=== PATIENT | male | born 1970 | race Caucasian/White ===

== ENCOUNTER 2016-10-11 15:37 | Emergency (ER) | payer BC, OTHER ==
[~2016-10-11] VITALS: Ht 188 cm; Wt 99.8 kg
[2016-10-11] MEDS ORDERED: IBUPROFEN 400 MG TABLET ONE (16:00)
[2016-10-11] MEDS ORDERED: IBUPROFEN 400 MG TABLET PO ONE (16:00)
[2016-10-11 17:38] VITALS: BP 142/76
== END 2016-10-11 17:39 | disposition home or self-care (01) ==
LOC: ER 15:41
DX: S16.1XXA Strain of muscle, fascia and tendon at neck level, initial encounter (principal); S40.011A Contusion of right shoulder, initial encounter; S60.211A Contusion of right wrist, initial encounter; E78.00 Pure hypercholesterolemia, unspecified; C67.9 Malignant neoplasm of bladder, unspecified; Z98.890 Other specified postprocedural states; V43.52XA Car driver injured in collision with other type car in traffic accident, initial encounter; Y93.89 Activity, other specified; Y92.413 State road as the place of occurrence of the external cause; Y99.8 Other external cause status
CPT/HCPCS: 73030; 73110; 99284; A4606; Z7610